=== PATIENT | female | born 1970 | race Caucasian/White ===

== ENCOUNTER 2017-08-05 22:57 | Emergency (ER) | payer MEDICAID, OTHER ==
[2017-08-05] MEDS ORDERED: Sodium Chloride 0.9% 10 ML Syringe FLUSH PRN (23:00)
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
[2017-08-05 23:41] LABS: ACETAMINOPHEN < 2 ug/mL (10-30)
[2017-08-05] MEDS ORDERED: Sodium Chloride 0.9% 1,000 ML IV ONE (23:43)
[2017-08-06] MEDS ORDERED: Levofloxacin 250 MG Tab PO STA (00:19)
[2017-08-06 07:22] VITALS: BP 100/67
== END 2017-08-06 08:35 ==
LOC: FB.ED 22:57
DX: R45.850 Homicidal ideations (principal); Z88.0 Allergy status to penicillin; Z88.8 Allergy status to other drugs, medicaments and biological substances; Z79.899 Other long term (current) drug therapy
CPT/HCPCS: 36415; 80048; 80305; 81001; 84443; 84702; 85025; 87086; 93005; 96360; 99285; A9270; G0480; J7040; J7050

== ENCOUNTER 2019-05-14 22:59 | Emergency (ER) | payer SELFPAY ==
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
[2019-05-14] MEDS ORDERED: LORazepam 2 MG/ML SDV IM ONE (23:55)
[2019-05-15 01:19] VITALS: BP 123/66; PULSE 76
== END 2019-05-15 00:55 | disposition home or self-care (01) ==
LOC: FB.ED 22:59
DX: F41.0 Panic disorder [episodic paroxysmal anxiety] (principal); E11.9 Type 2 diabetes mellitus without complications; J45.909 Unspecified asthma, uncomplicated; F32.9 Major depressive disorder, single episode, unspecified; Z88.8 Allergy status to other drugs, medicaments and biological substances; Z88.0 Allergy status to penicillin; Z79.899 Other long term (current) drug therapy
CPT/HCPCS: 36415; 80053; 80305; 80320; 84443; 85025; 96372; 99285; J2060; G0480